=== PATIENT | female | born 1995 | race African-American/Black ===

== ENCOUNTER 2016-06-08 14:23 | Inpatient (IN) | payer MEDICAID ==
[~2016-06-08 14:23] MED LIST: CHOL200018 PO; LURA60TA PO
[2016-06-08] MEDS ORDERED: LORazepam 2 MG/ML VIAL IM ONE (15:15)
[2016-06-08] MEDS ORDERED: DiphenhydrAMINE HCL 50 MG/ML VIAL IM ONE (15:15)
[2016-06-08] MEDS ORDERED: HALOPERIDOL LACTATE 5 MG/ML VIAL IM ONE (15:15)
[2016-06-08 16:01] VITALS: BP 132/73
[2016-06-08] MEDS ORDERED: LORazepam 2 MG TABLET PO PRN (16:30)
[2016-06-08] MEDS ORDERED: ZOLPIDEM TARTRATE 10 MG TABLET PO PRN (16:30)
[2016-06-08] MEDS ORDERED: HALOPERIDOL 5 MG TABLET PO PRN (16:30)
[2016-06-08] MEDS ORDERED: INFLUENZA VIRUS VACCINE QVS 2016-17 (3YR+)/PF 60 MCG/0.5 ML SYRINGE IM ONE (17:30)
[2016-06-09 07:05] VITALS: BP 125/70
[2016-06-09] MEDS ORDERED: ACETAMINOPHEN 325 MG TABLET PO PRN (09:00)
[2016-06-09] MEDS ORDERED: IBUPROFEN 600 MG TABLET PO PRN (09:00)
[2016-06-09] MEDS ORDERED: MAGNESIUM HYDROXIDE SUSPENSION 30 ML UDCUP PO PRN (09:00)
[2016-06-09] MEDS ORDERED: BENZOCAINE/MENTHOL LOZENGE MM PRN (09:00)
[2016-06-09] MEDS ORDERED: CloNIDine HCL 0.1 MG TABLET PO PRN (09:00)
[2016-06-09] MEDS ORDERED: ONDANSETRON HCL 4 MG TABLET PO PRN (09:00)
[2016-06-09] MEDS ORDERED: LOPERAMIDE HCL 2 MG CAPSULE PO PRN (09:00)
[2016-06-09] MEDS ORDERED: ALBUTEROL SULFATE HFA 90 MCG/PUFF 8 GM INHALER IH PRN (09:00)
[2016-06-09] MEDS: CHOLECALCIFEROL (VIT D3) 1,000 UNITS TABLET PO SCH (09:00)
[2016-06-09] MEDS ORDERED: PETROLATUM,WHITE 71 GM JELLY TP PRN (09:00)
[2016-06-09] MEDS ORDERED: BACITRACIN 28.4 GM OINTMENT TP PRN (09:00)
[2016-06-09] MEDS ORDERED: MAG HYDROX/AL HYDROX/SIMETH ES 30 ML SUSPENSION UDCUP PO PRN (09:00)
[2016-06-09 09:30] VITALS: BP 128/79
[2016-06-09] MEDS ORDERED: HALOPERIDOL LACTATE 5 MG/ML VIAL ONE (11:56)
[2016-06-09] MEDS ORDERED: DiphenhydrAMINE HCL 50 MG/ML VIAL ONE (11:56)
[2016-06-09] MEDS ORDERED: LORazepam 2 MG/ML VIAL ONE (11:56)
[2016-06-09 16:06] VITALS: BP 102/64
[2016-06-09] MEDS: RisperiDONE 2 MG TABLET PO SCH (16:24)
[2016-06-10 00:05] VITALS: BP 100/60
[2016-06-10 08:34] VITALS: BP 102/55
[2016-06-10] MEDS: CHOLECALCIFEROL (VIT D3) 1,000 UNITS TABLET PO SCH (09:13)
[2016-06-10] MEDS: RisperiDONE 2 MG TABLET PO SCH (09:13)
[2016-06-10] MEDS ORDERED: RISP2 PO (13:59)
== END 2016-06-10 14:50 | disposition home or self-care (01) | DRG 750 ==
LOC: B3A 17:10
DX: F25.0 Schizoaffective disorder, bipolar type (principal); E55.9 Vitamin D deficiency, unspecified; F41.9 Anxiety disorder, unspecified; F17.200 Nicotine dependence, unspecified, uncomplicated; F15.10 Other stimulant abuse, uncomplicated; F12.90 Cannabis use, unspecified, uncomplicated; Z28.21 Immunization not carried out because of patient refusal; Z71.6 Tobacco abuse counseling; Z71.51 Drug abuse counseling and surveillance of drug abuser
CPT/HCPCS: 90471; J1200; J1630; J2060

== ENCOUNTER 2016-07-27 12:27 | Inpatient (IN) | payer MEDICAID ==
[~2016-07-27] VITALS: Ht 154.9 cm; Wt 42.2 kg
[~2016-07-27 12:27] MED LIST changes: -LURA60TA PO; +RISP2 PO
[2016-07-27 12:39] VITALS: BP 126/75
[2016-07-27] MEDS ORDERED: TUBERCULIN, PURIFIED PROTEIN DERIVATIVE 5 TU/0.1 ML SYG ID ONE (13:30)
[2016-07-27] MEDS ORDERED: HydrOXYzine PAMOATE 50 MG CAPSULE PO PRN (13:30)
[2016-07-27] MEDS ORDERED: OLANZapine 5 MG RAPDIS TABLET PO PRN (13:30)
[2016-07-27] MEDS ORDERED: MAG HYDROX/AL HYDROX/SIMETH ES 30 ML SUSPENSION UDCUP PO PRN (13:30)
[2016-07-27] MEDS ORDERED: ZOLPIDEM TARTRATE 10 MG TABLET PO PRN (13:30)
[2016-07-27] MEDS ORDERED: ACETAMINOPHEN 325 MG TABLET PO PRN (13:30)
[2016-07-27] MEDS ORDERED: GuaiFENesin/D-METHORPHAN [SUGAR-FREE] 200-20MG/10 ML SYRUP UDCUP PO PRN (13:30)
[2016-07-27] MEDS ORDERED: MAGNESIUM HYDROXIDE SUSPENSION 30 ML UDCUP PO PRN (13:30)
[2016-07-27] MEDS ORDERED: LOPERAMIDE HCL 2 MG CAPSULE PO PRN (13:30)
[2016-07-27] MEDS ORDERED: LORazepam 2 MG TABLET PO PRN (13:30)
[2016-07-27] MEDS ORDERED: PROMETHAZINE HCL 25 MG TABLET PO PRN (13:30)
[2016-07-27] MEDS ORDERED: RisperiDONE 1 MG TABLET PO PRN (14:45)
[2016-07-27] MEDS ORDERED: RisperiDONE MICROSPHERES 50 MG/2 ML SYRINGE IM ONE (14:45)
[2016-07-27] MEDS ORDERED: VITAD1000 PO (14:55)
[2016-07-27 16:11] VITALS: BP 140/90
[2016-07-27] MEDS ORDERED: LORazepam 2 MG/ML VIAL IM ONE (17:15)
[2016-07-27] MEDS ORDERED: DiphenhydrAMINE HCL 50 MG/ML VIAL IM ONE (17:15)
[2016-07-27] MEDS ORDERED: HALOPERIDOL LACTATE 5 MG/ML VIAL IM ONE (17:15)
[2016-07-27] MEDS: THIAMINE HCL 100 MG TABLET PO SCH (17:25)
[2016-07-27] MEDS ORDERED: INFLUENZA VIRUS VACCINE QVS 2016-17 (3YR+)/PF 60 MCG/0.5 ML SYRINGE IM ONE (17:45)
[2016-07-27] MEDS ORDERED: OLANZapine 5 MG RAPDIS TABLET PO SCH (21:00)
[2016-07-27] MEDS: RisperiDONE 3 MG TABLET PO SCH (21:00)
[2016-07-27 22:55] VITALS: BP 108/63
[2016-07-28] MEDS: THIAMINE HCL 100 MG TABLET PO SCH ×2 (09:00→16:47)
[2016-07-28] MEDS: MULTIVITAMINS WITH MINERALS, THERAPEUTIC TABLET PO SCH (09:00)
[2016-07-28] MEDS: CHOLECALCIFEROL (VIT D3) 1,000 UNITS TABLET PO SCH (09:00)
[2016-07-28] MEDS: FOLIC ACID 1 MG TABLET PO SCH (09:00)
[2016-07-28] MEDS ORDERED: LORazepam 2 MG/ML VIAL ONE (09:36)
[2016-07-28] MEDS ORDERED: HALOPERIDOL LACTATE 5 MG/ML VIAL ONE (09:37)
[2016-07-28] MEDS ORDERED: DiphenhydrAMINE HCL 50 MG/ML VIAL ONE (09:37)
[2016-07-28] MEDS ORDERED: LORazepam 2 MG/ML VIAL IM ONE (09:45)
[2016-07-28] MEDS ORDERED: DiphenhydrAMINE HCL 50 MG/ML VIAL IM ONE (09:45)
[2016-07-28] MEDS ORDERED: HALOPERIDOL LACTATE 5 MG/ML VIAL IM ONE (09:45)
[2016-07-28 16:25] VITALS: BP 119/56
[2016-07-28] MEDS: RisperiDONE 3 MG TABLET PO SCH (21:00)
[2016-07-29] MEDS: THIAMINE HCL 100 MG TABLET PO SCH ×2 (09:00→17:00)
[2016-07-29] MEDS: FOLIC ACID 1 MG TABLET PO SCH (09:00)
[2016-07-29] MEDS: CHOLECALCIFEROL (VIT D3) 1,000 UNITS TABLET PO SCH (09:00)
[2016-07-29] MEDS: MULTIVITAMINS WITH MINERALS, THERAPEUTIC TABLET PO SCH (09:00)
[2016-07-29 09:08] LABS: ADD UA MICROSCOPIC NO; APPEARANCE,URINE CLEAR (CLEAR); GLUCOSE, URINE (UA) NEGATIVE (NEGATIVE); KETONES,URINE NEGATIVE (NEGATIVE); LEUKOCYTE ESTERASE ,URINE NEGATIVE (NEGATIVE); OCCULT BLOOD,URINE NEGATIVE (NEGATIVE); PROTEIN,URINE POS 1+ (NEGATIVE)
[2016-07-29] MEDS: RisperiDONE 3 MG TABLET PO SCH (21:00)
[2016-07-30 08:12] LABS: EOSINOPHILS % (AUTO) 0.9 % (1.0-6.0); HEMATOCRIT 41.9 % (36-46); HEMOGLOBIN 13.3 g/dL (12.0-16.0); LYMPHOCYTES # (AUTO) 1.4 K/uL (1.0-4.8); LYMPHOCYTES % (AUTO) 42.5 % (22.0-44.0); MEAN CORPUSCULAR HEMOGLOBIN 20.8 pg (26.0-34.0); MEAN CORPUSCULAR HGB CONC 31.6 G/dL (31.0-37.0); MEAN CORPUSCULAR VOLUME 66 fL (80-100); MONOCYTES # (AUTO) 0.3 K/uL (0.1-1.0); MONOCYTES % (AUTO) 7.7 % (2.0-9.0); NEUTROPHILS # (AUTO) 1.6 K/uL (1.8-7.7); NEUTROPHILS % (AUTO) 47.9 % (40.0-70.0); PLATELET COUNT (AUTO) 206 K/uL (150-450); RED BLOOD CELL COUNT(AUTO) 6.37 MIL/uL (4.00-5.20); RED CELL DISTRIBUTION WIDTH 14.8 % (11.5-14.5); WHITE BLOOD COUNT (AUTO) 3.3 K/uL (4.5-11.0)
[2016-07-30 08:16] VITALS: BP 103/60
[2016-07-30 08:32] LABS: HEMOGLOBIN A1C 5.6 % (4.5-6.2)
[2016-07-30 08:40] LABS: RBC MORPHOLOGY COMMENT ABNORMAL RBC MORPH
[2016-07-30 08:56] LABS: ALANINE AMINOTRANSFERASE 18 U/L (12-78); ALBUMIN 3.9 g/dL (3.4-5.0); ANION GAP 9 mmol/L (8-16); ASPARTATE AMINOTRANSFERASE 33 U/L (15-37); BILIRUBIN,TOTAL 0.5 mg/dL (0.1-1.0); CALCIUM, TOTAL 8.6 mg/dL (8.8-10.5); CARBON DIOXIDE 25 mmol/L (22-29); CHLORIDE 104 mmol/L (98-107); CHOL/HDL RATIO 2.7 (3.9-5.7); GLOMERULAR FILTR. RATE CALC > 60 mL/min (>60); POTASSIUM 4.2 mmol/L (3.5-5.1); SODIUM SERUM 138 mmol/L (136-145); THYROID STIMULATING HORMONE 0.24 uIU/mL (0.36-3.74); TOTAL PROTEIN, SERUM 6.8 g/dL (6.4-8.2); UREA NITROGEN, BLOOD 9 mg/dL (7-18)
[2016-07-30] MEDS: CHOLECALCIFEROL (VIT D3) 1,000 UNITS TABLET PO SCH (08:59)
[2016-07-30] MEDS: MULTIVITAMINS WITH MINERALS, THERAPEUTIC TABLET PO SCH (08:59)
[2016-07-30] MEDS: THIAMINE HCL 100 MG TABLET PO SCH ×2 (08:59→16:23)
[2016-07-30] MEDS: FOLIC ACID 1 MG TABLET PO SCH (09:00)
[2016-07-30] MEDS: NALTREXONE HCL 50 MG TABLET PO SCH (09:00)
[2016-07-30] MEDS ORDERED: RisperiDONE MICROSPHERES 50 MG/2 ML SYRINGE IM SCH (13:00)
[2016-07-30] MEDS ORDERED: RISP3 PO (14:39)
[2016-07-30] MEDS ORDERED: NALT50 PO (14:39)
[2016-07-30] MEDS ORDERED: RISPC50 IM (14:39)
[2016-07-30 16:33] VITALS: BP 112/73
[2016-07-30 17:44] LABS: RAPID PLASMA REAGIN NONREACTIVE (NONREACTIVE)
[2016-07-30] MEDS ORDERED: RisperiDONE 3 MG TABLET PO SCH (21:00)
[2016-07-31] MEDS: CHOLECALCIFEROL (VIT D3) 1,000 UNITS TABLET PO SCH (07:59)
[2016-07-31] MEDS: NALTREXONE HCL 50 MG TABLET PO SCH (07:59)
[2016-07-31] MEDS: FOLIC ACID 1 MG TABLET PO SCH (07:59)
[2016-07-31] MEDS: THIAMINE HCL 100 MG TABLET PO SCH (07:59)
[2016-07-31] MEDS: MULTIVITAMINS WITH MINERALS, THERAPEUTIC TABLET PO SCH (07:59)
[2016-07-31 08:48] VITALS: BP 92/70
[2016-07-31 11:17] LABS: HEPATITIS Bs ANTIGEN SCREEN P Negative (Negative); HEPATITIS C AB SCREEN <0.1 s/co ratio (0.0-0.9)
[2016-08-10] MEDS ORDERED: RisperiDONE MICROSPHERES 50 MG/2 ML SYRINGE IM SCH (09:00)
== END 2016-07-31 11:30 | disposition home or self-care (01) | DRG 750 ==
LOC: B3A 14:53 → EDSTATUS 15:02
PROVIDERS: ADMIT Psychiatry & Neurology Psychiatry; ATTEND Psychiatry & Neurology Psychiatry
DX: F20.0 Paranoid schizophrenia (principal); E55.9 Vitamin D deficiency, unspecified; F12.90 Cannabis use, unspecified, uncomplicated; F15.90 Other stimulant use, unspecified, uncomplicated; F17.200 Nicotine dependence, unspecified, uncomplicated; Z79.899 Other long term (current) drug therapy; Z59.0 Homelessness; Z91.14 Patient's other noncompliance with medication regimen; Z28.21 Immunization not carried out because of patient refusal
CPT/HCPCS: 80074; 83036; 84439; 84443; 86592; 90471; J1200; J1630; J2060; J2794

== ENCOUNTER 2016-08-02 14:35 | Inpatient (IN) | payer MEDICAID ==
[~2016-08-02 14:35] MED LIST changes: -CHOL200018 PO; +NALT50 PO; -RISP2 PO; +RISP3 PO; +RISPC50 IM; +VITAD1000 PO
[2016-08-02] MEDS ORDERED: LORazepam 2 MG/ML VIAL IM ONE (14:45)
[2016-08-02] MEDS ORDERED: HALOPERIDOL 5 MG TABLET PO PRN (14:45)
[2016-08-02] MEDS ORDERED: HALOPERIDOL LACTATE 5 MG/ML VIAL IM ONE (14:45)
[2016-08-02] MEDS ORDERED: ZOLPIDEM TARTRATE 10 MG TABLET PO PRN (14:45)
[2016-08-02] MEDS ORDERED: DiphenhydrAMINE HCL 50 MG/ML VIAL IM ONE (14:45)
[2016-08-02] MEDS ORDERED: ACETAMINOPHEN 325 MG TABLET PO PRN (14:45)
[2016-08-02] MEDS ORDERED: MAG HYDROX/AL HYDROX/SIMETH ES 30 ML SUSPENSION UDCUP PO PRN (14:45)
[2016-08-02] MEDS ORDERED: LOPERAMIDE HCL 2 MG CAPSULE PO PRN (14:45)
[2016-08-02] MEDS ORDERED: PROMETHAZINE HCL 25 MG TABLET PO PRN (14:45)
[2016-08-02] MEDS ORDERED: MAGNESIUM HYDROXIDE SUSPENSION 30 ML UDCUP PO PRN (14:45)
[2016-08-02 15:18] VITALS: BP 119/77
[2016-08-02 16:12] VITALS: BP 119/77
[2016-08-02] MEDS ORDERED: RisperiDONE 3 MG TABLET PO SCH (21:00)
[2016-08-03] MEDS ORDERED: LORazepam 2 MG/ML VIAL ONE (11:24)
[2016-08-03] MEDS ORDERED: DiphenhydrAMINE HCL 50 MG/ML VIAL ONE (11:24)
[2016-08-03] MEDS ORDERED: HALOPERIDOL LACTATE 5 MG/ML VIAL ONE (11:24)
[2016-08-03] MEDS ORDERED: HydrOXYzine PAMOATE 50 MG CAPSULE PO PRN (14:00)
[2016-08-03] MEDS ORDERED: GuaiFENesin/D-METHORPHAN [SUGAR-FREE] 200-20MG/10 ML SYRUP UDCUP PO PRN (14:00)
[2016-08-03] MEDS: THIAMINE HCL 100 MG TABLET PO SCH (16:50)
[2016-08-03] MEDS: LORazepam 2 MG TABLET PO PRN (17:09)
[2016-08-03] MEDS: DIVALPROEX SODIUM 500 MG ER TABLET PO SCH (20:43)
[2016-08-03] MEDS ORDERED: RisperiDONE 3 MG TABLET PO SCH (21:00)
[2016-08-03] MEDS ORDERED: OLANZapine 5 MG RAPDIS TABLET PO SCH (21:00)
[2016-08-04] MEDS: FOLIC ACID 1 MG TABLET PO SCH (08:38)
[2016-08-04] MEDS: THIAMINE HCL 100 MG TABLET PO SCH ×2 (08:38→16:59)
[2016-08-04] MEDS: MULTIVITAMINS WITH MINERALS, THERAPEUTIC TABLET PO SCH (08:38)
[2016-08-04] MEDS: NALTREXONE HCL 50 MG TABLET PO SCH (08:38)
[2016-08-04] MEDS: DIVALPROEX SODIUM 500 MG ER TABLET PO SCH (20:52)
[2016-08-04] MEDS: OLANZapine 10 MG RAPDIS TABLET PO SCH (20:52)
[2016-08-05 08:23] LABS: BASOPHILS % (AUTO) 0.8 % (0.0-2.0); HEMATOCRIT 38.3 % (36-46); HEMOGLOBIN 11.9 g/dL (12.0-16.0); LYMPHOCYTES # (AUTO) 1.3 K/uL (1.0-4.8); LYMPHOCYTES % (AUTO) 28.7 % (22.0-44.0); MEAN CORPUSCULAR HEMOGLOBIN 20.7 pg (26.0-34.0); MEAN CORPUSCULAR VOLUME 67 fL (80-100); MONOCYTES # (AUTO) 0.2 K/uL (0.1-1.0); MONOCYTES % (AUTO) 5.3 % (2.0-9.0); NEUTROPHILS % (AUTO) 64.2 % (40.0-70.0); PLATELET COUNT (AUTO) 203 K/uL (150-450); RED BLOOD CELL COUNT(AUTO) 5.74 MIL/uL (4.00-5.20); RED CELL DISTRIBUTION WIDTH 14.6 % (11.5-14.5); WHITE BLOOD COUNT (AUTO) 4.7 K/uL (4.5-11.0)
[2016-08-05 08:57] LABS: ALANINE AMINOTRANSFERASE 14 U/L (12-78); ALBUMIN 3.3 g/dL (3.4-5.0); ANION GAP 6 mmol/L (8-16); ASPARTATE AMINOTRANSFERASE 13 U/L (15-37); BILIRUBIN,TOTAL 0.3 mg/dL (0.1-1.0); CALCIUM, TOTAL 8.2 mg/dL (8.8-10.5); CARBON DIOXIDE 28 mmol/L (22-29); CHLORIDE 106 mmol/L (98-107); CHOL/HDL RATIO 2.1 (3.9-5.7); CREATININE 0.65 mg/dL (0.60-1.30); GLOMERULAR FILTR. RATE CALC > 60 mL/min (>60); POTASSIUM 4.3 mmol/L (3.5-5.1); SODIUM SERUM 140 mmol/L (136-145); THYROID STIMULATING HORMONE 0.11 uIU/mL (0.36-3.74); TOTAL PROTEIN, SERUM 6.2 g/dL (6.4-8.2); UREA NITROGEN, BLOOD 16 mg/dL (7-18); VALPROIC ACID 34 mcg/mL (50-100)
[2016-08-05] MEDS: NALTREXONE HCL 50 MG TABLET PO SCH (09:04)
[2016-08-05] MEDS: MULTIVITAMINS WITH MINERALS, THERAPEUTIC TABLET PO SCH (09:04)
[2016-08-05] MEDS: FOLIC ACID 1 MG TABLET PO SCH (09:04)
[2016-08-05] MEDS: THIAMINE HCL 100 MG TABLET PO SCH ×2 (09:04→16:32)
[2016-08-05 09:27] LABS: RBC MORPHOLOGY COMMENT ABNORMAL RBC MORPH
[2016-08-05] MEDS ORDERED: DiphenhydrAMINE HCL 50 MG/ML VIAL ONE (11:00)
[2016-08-05] MEDS ORDERED: LORazepam 2 MG/ML VIAL ONE (11:00)
[2016-08-05] MEDS ORDERED: HALOPERIDOL LACTATE 5 MG/ML VIAL ONE (11:00)
[2016-08-05] MEDS ORDERED: DiphenhydrAMINE HCL 50 MG/ML VIAL IM ONE (11:15)
[2016-08-05] MEDS ORDERED: LORazepam 2 MG/ML VIAL IM ONE (11:15)
[2016-08-05] MEDS ORDERED: HALOPERIDOL LACTATE 5 MG/ML VIAL IM ONE (11:15)
[2016-08-05 13:01] VITALS: BP 96/68
[2016-08-05] MEDS: DIVALPROEX SODIUM 500 MG ER TABLET PO SCH (20:35)
[2016-08-05] MEDS: OLANZapine 10 MG RAPDIS TABLET PO SCH (20:35)
[2016-08-06] MEDS: THIAMINE HCL 100 MG TABLET PO SCH ×2 (08:39→16:04)
[2016-08-06] MEDS: NALTREXONE HCL 50 MG TABLET PO SCH (08:39)
[2016-08-06] MEDS: FOLIC ACID 1 MG TABLET PO SCH (08:39)
[2016-08-06] MEDS: MULTIVITAMINS WITH MINERALS, THERAPEUTIC TABLET PO SCH (08:39)
[2016-08-06 16:39] VITALS: BP 118/72
[2016-08-06] MEDS: OLANZapine 10 MG RAPDIS TABLET PO SCH (20:26)
[2016-08-06] MEDS: DIVALPROEX SODIUM 500 MG ER TABLET PO SCH (20:26)
[2016-08-07] MEDS: MULTIVITAMINS WITH MINERALS, THERAPEUTIC TABLET PO SCH (08:43)
[2016-08-07] MEDS: NALTREXONE HCL 50 MG TABLET PO SCH (08:43)
[2016-08-07] MEDS: FOLIC ACID 1 MG TABLET PO SCH (08:44)
[2016-08-07] MEDS: THIAMINE HCL 100 MG TABLET PO SCH ×2 (08:44→16:09)
[2016-08-07] MEDS: OLANZapine 5 MG RAPDIS TABLET PO PRN (13:16)
[2016-08-07] MEDS: LORazepam 2 MG TABLET PO PRN (13:16)
[2016-08-07 16:00] VITALS: BP 114/68
[2016-08-07] MEDS: DIVALPROEX SODIUM 500 MG ER TABLET PO SCH (21:00)
[2016-08-07] MEDS: OLANZapine 10 MG RAPDIS TABLET PO SCH (21:00)
[2016-08-08] MEDS: MULTIVITAMINS WITH MINERALS, THERAPEUTIC TABLET PO SCH (08:48)
[2016-08-08] MEDS: LORazepam 2 MG TABLET PO PRN ×2 (08:48→16:50)
[2016-08-08] MEDS: NALTREXONE HCL 50 MG TABLET PO SCH (08:48)
[2016-08-08] MEDS: THIAMINE HCL 100 MG TABLET PO SCH ×2 (08:48→16:50)
[2016-08-08] MEDS: FOLIC ACID 1 MG TABLET PO SCH (08:48)
[2016-08-08 08:50] VITALS: BP 103/61
[2016-08-08] MEDS: IBUPROFEN 600 MG TABLET PO PRN ×2 (12:00→18:07)
[2016-08-08 16:17] VITALS: BP 97/50
[2016-08-08] MEDS: OLANZapine 5 MG RAPDIS TABLET PO PRN (16:51)
[2016-08-08] MEDS: OLANZapine 10 MG RAPDIS TABLET PO SCH (20:34)
[2016-08-08] MEDS: DIVALPROEX SODIUM 500 MG ER TABLET PO SCH (20:34)
[2016-08-09 07:06] VITALS: BP 98/60
[2016-08-09] MEDS: NALTREXONE HCL 50 MG TABLET PO SCH (09:56)
[2016-08-09] MEDS: LORazepam 2 MG TABLET PO PRN ×2 (09:56→16:40)
[2016-08-09] MEDS: OLANZapine 5 MG RAPDIS TABLET PO PRN ×2 (09:56→16:40)
[2016-08-09] MEDS: FOLIC ACID 1 MG TABLET PO SCH (09:56)
[2016-08-09] MEDS: MULTIVITAMINS WITH MINERALS, THERAPEUTIC TABLET PO SCH (09:56)
[2016-08-09] MEDS: THIAMINE HCL 100 MG TABLET PO SCH ×2 (09:56→16:40)
[2016-08-09 10:08] VITALS: BP 104/72
[2016-08-09 16:20] VITALS: BP 105/67
[2016-08-09] MEDS: IBUPROFEN 600 MG TABLET PO PRN (16:39)
[2016-08-09] MEDS: DIVALPROEX SODIUM 500 MG ER TABLET PO SCH (21:00)
[2016-08-09] MEDS: OLANZapine 10 MG RAPDIS TABLET PO SCH (21:00)
[2016-08-10 07:01] VITALS: BP 108/65
[2016-08-10 08:19] VITALS: BP 116/66
[2016-08-10] MEDS: MULTIVITAMINS WITH MINERALS, THERAPEUTIC TABLET PO SCH (08:33)
[2016-08-10] MEDS: THIAMINE HCL 100 MG TABLET PO SCH ×2 (08:33→16:59)
[2016-08-10] MEDS: IBUPROFEN 600 MG TABLET PO PRN (08:33)
[2016-08-10] MEDS: FOLIC ACID 1 MG TABLET PO SCH (08:33)
[2016-08-10] MEDS: OLANZapine 5 MG RAPDIS TABLET PO PRN (08:33)
[2016-08-10] MEDS: NALTREXONE HCL 50 MG TABLET PO SCH (08:33)
[2016-08-10] MEDS: LORazepam 2 MG TABLET PO PRN (08:33)
[2016-08-10] MEDS ORDERED: OLAN10TA22 PO (15:13)
[2016-08-10] MEDS ORDERED: DIVA500T52 PO (15:13)
[2016-08-10] MEDS ORDERED: NALT50 PO (15:13)
[2016-08-10] MEDS: OLANZapine 10 MG RAPDIS TABLET PO SCH (20:38)
[2016-08-10] MEDS: DIVALPROEX SODIUM 500 MG ER TABLET PO SCH (20:44)
[2016-08-11 06:48] VITALS: BP 106/65
[2016-08-11 08:08] VITALS: BP 109/61
[2016-08-11] MEDS: FOLIC ACID 1 MG TABLET PO SCH (08:19)
[2016-08-11] MEDS: MULTIVITAMINS WITH MINERALS, THERAPEUTIC TABLET PO SCH (08:19)
[2016-08-11] MEDS: NALTREXONE HCL 50 MG TABLET PO SCH (08:19)
[2016-08-11] MEDS: THIAMINE HCL 100 MG TABLET PO SCH (08:19)
[2016-08-11] MEDS: LORazepam 2 MG TABLET PO PRN (10:01)
[2016-08-13] MEDS ORDERED: RisperiDONE MICROSPHERES 50 MG/2 ML SYRINGE IM SCH (09:00)
== END 2016-08-11 10:55 | disposition home or self-care (01) | DRG 750 ==
LOC: B3A 15:01
PROVIDERS: ATTEND Psychiatry & Neurology Psychiatry
DX: F20.0 Paranoid schizophrenia (principal); E55.9 Vitamin D deficiency, unspecified; F25.0 Schizoaffective disorder, bipolar type; F12.90 Cannabis use, unspecified, uncomplicated; F19.10 Other psychoactive substance abuse, uncomplicated; F17.210 Nicotine dependence, cigarettes, uncomplicated; Z59.9 Problem related to housing and economic circumstances, unspecified; Z59.0 Homelessness; Z71.6 Tobacco abuse counseling; Z71.51 Drug abuse counseling and surveillance of drug abuser; Z91.19 Patient's noncompliance with other medical treatment and regimen; Z81.8 Family history of other mental and behavioral disorders
CPT/HCPCS: 84439; 84443; 87081; J1200; J1630; J2060

== ENCOUNTER 2017-09-07 14:17 | Inpatient (IN) | payer SELFPAY ==
[~2017-09-07] VITALS: Ht 154.9 cm; Wt 42.2 kg
[~2017-09-07 14:17] MED LIST changes: +DIVA500T52 PO; -NALT50 PO; +NALT50TA6 PO; +OLAN10TA22 PO; -RISP3 PO; -RISPC50 IM; -VITAD1000 PO
[2017-09-07 17:04] LABS: BASOPHILS % (AUTO) 1.7 % (0.0-2.0); EOSINOPHILS % (AUTO) 0.4 % (1.0-6.0); HEMATOCRIT 36.4 % (36-46); HEMOGLOBIN 12.1 g/dL (12.0-16.0); LYMPHOCYTES # (AUTO) 2.1 K/uL (1.0-4.8); LYMPHOCYTES % (AUTO) 53.5 % (22.0-44.0); MEAN CORPUSCULAR HGB CONC 33.4 G/dL (31.0-37.0); MEAN CORPUSCULAR VOLUME 63 fL (80-100); MONOCYTES # (AUTO) 0.4 K/uL (0.1-1.0); MONOCYTES % (AUTO) 9.7 % (2.0-9.0); NEUTROPHILS # (AUTO) 1.3 K/uL (1.8-7.7); NEUTROPHILS % (AUTO) 34.7 % (40.0-70.0); PLATELET COUNT (AUTO) 215 K/uL (150-450); RED BLOOD CELL COUNT(AUTO) 5.78 MIL/uL (4.00-5.20); RED CELL DISTRIBUTION WIDTH 14.3 % (11.5-14.5)
[2017-09-07 17:13] LABS: ANION GAP 7 mmol/L (8-16); CALCIUM, TOTAL 8.6 mg/dL (8.8-10.5); CARBON DIOXIDE 29 mmol/L (22-29); CHLORIDE 103 mmol/L (98-107); CREATININE 0.75 mg/dL (0.60-1.30); GLOMERULAR FILTR. RATE CALC > 60 mL/min (>60); GLUCOSE,RANDOM 117 mg/dL (70-110); POTASSIUM 3.4 mmol/L (3.5-5.1); SODIUM SERUM 139 mmol/L (136-145); UREA NITROGEN, BLOOD 12 mg/dL (7-18)
[2017-09-07] MEDS ORDERED: HALOPERIDOL 5 MG TABLET PO ONE (17:15)
[2017-09-07] MEDS: ZOLPIDEM TARTRATE 10 MG TABLET PO PRN (17:15)
[2017-09-07] MEDS ORDERED: LORazepam 2 MG TABLET PO ONE (17:15)
[2017-09-07 17:18] LABS: ALANINE AMINOTRANSFERASE 23 U/L (12-78); ALKALINE PHOSPHATASE 79 U/L (46-116); ASPARTATE AMINOTRANSFERASE 18 U/L (15-37); BILIRUBIN,TOTAL 0.7 mg/dL (0.1-1.0); TOTAL PROTEIN, SERUM 6.9 g/dL (6.4-8.2)
[2017-09-07 17:34] LABS: PLATELET MORPHOLOGY COMMENT GIANT PLTS PRESENT
[2017-09-07 21:04] VITALS: BP 128/68
[2017-09-07] MEDS ORDERED: POTASSIUM CHLORIDE 20 MEQ ER TABLET PO ONE (21:15)
[2017-09-08 05:58] VITALS: BP 103/64
[2017-09-08] MEDS ORDERED: BACITRACIN 28.4 GM OINTMENT TP PRN (08:30)
[2017-09-08] MEDS ORDERED: ALBUTEROL SULFATE HFA 90 MCG/PUFF 8 GM INHALER IH PRN (08:30)
[2017-09-08] MEDS ORDERED: MAG HYDROX/AL HYDROX/SIMETH ES 30 ML SUSPENSION UDCUP PO PRN (08:30)
[2017-09-08] MEDS ORDERED: CloNIDine HCL 0.1 MG TABLET PO PRN (08:30)
[2017-09-08] MEDS ORDERED: BENZOCAINE/MENTHOL LOZENGE MM PRN (08:30)
[2017-09-08] MEDS ORDERED: ACETAMINOPHEN 325 MG TABLET PO PRN ×2 (08:30→16:45)
[2017-09-08] MEDS ORDERED: MAGNESIUM HYDROXIDE SUSPENSION 30 ML UDCUP PO PRN (08:30)
[2017-09-08] MEDS ORDERED: ONDANSETRON HCL 4 MG TABLET PO PRN (08:30)
[2017-09-08] MEDS ORDERED: LOPERAMIDE HCL 2 MG CAPSULE PO PRN (08:30)
[2017-09-08] MEDS ORDERED: PETROLATUM,WHITE 71 GM JELLY TP PRN (08:30)
[2017-09-08] MEDS ORDERED: IBUPROFEN 600 MG TABLET PO PRN (08:30)
[2017-09-08 16:25] VITALS: BP 126/71
[2017-09-08] MEDS ORDERED: IBUPROFEN 400 MG TABLET PO PRN (16:45)
[2017-09-08] MEDS: HALOPERIDOL 5 MG TABLET PO PRN (17:25)
[2017-09-08] MEDS: LORazepam 2 MG TABLET PO PRN (17:25)
[2017-09-08] MEDS: OLANZapine 10 MG TABLET PO SCH (21:06)
[2017-09-08] MEDS: ZOLPIDEM TARTRATE 10 MG TABLET PO PRN (21:06)
[2017-09-09 07:56] LABS: BASOPHILS % (AUTO) 1.3 % (0.0-2.0); EOSINOPHILS % (AUTO) 0.9 % (1.0-6.0); HEMATOCRIT 38.7 % (36-46); HEMOGLOBIN 12.8 g/dL (12.0-16.0); LYMPHOCYTES # (AUTO) 1.6 K/uL (1.0-4.8); LYMPHOCYTES % (AUTO) 64.6 % (22.0-44.0); MEAN CORPUSCULAR HEMOGLOBIN 21.1 pg (26.0-34.0); MEAN CORPUSCULAR HGB CONC 33.1 G/dL (31.0-37.0); MEAN CORPUSCULAR VOLUME 64 fL (80-100); MONOCYTES # (AUTO) 0.2 K/uL (0.1-1.0); MONOCYTES % (AUTO) 8.7 % (2.0-9.0); NEUTROPHILS # (AUTO) 0.6 K/uL (1.8-7.7); NEUTROPHILS % (AUTO) 24.5 % (40.0-70.0); PLATELET COUNT (AUTO) 216 K/uL (150-450); RED BLOOD CELL COUNT(AUTO) 6.08 MIL/uL (4.00-5.20); RED CELL DISTRIBUTION WIDTH 14.1 % (11.5-14.5)
[2017-09-09 08:14] LABS: HEMOGLOBIN A1C 5.4 % (4.5-6.2)
[2017-09-09 08:21] LABS: CHOL/HDL RATIO 2.3 (3.9-5.7); THYROID STIMULATING HORMONE 0.41 uIU/mL (0.36-3.74)
[2017-09-09 08:55] VITALS: BP 102/67
[2017-09-09 16:05] VITALS: BP 103/62
[2017-09-09] MEDS: OLANZapine 10 MG TABLET PO SCH (20:28)
[2017-09-09] MEDS: ZOLPIDEM TARTRATE 10 MG TABLET PO PRN (21:37)
[2017-09-10 06:03] VITALS: BP 122/69
[2017-09-10 16:43] VITALS: BP 100/56
[2017-09-10] MEDS: DIVALPROEX SODIUM 250 MG DR TABLET PO SCH (17:16)
[2017-09-10] MEDS: OLANZapine 10 MG TABLET PO SCH (21:00)
[2017-09-11] MEDS: DIVALPROEX SODIUM 250 MG DR TABLET PO SCH ×2 (08:29→17:17)
[2017-09-11 17:00] VITALS: BP 108/66
[2017-09-11] MEDS: ZOLPIDEM TARTRATE 10 MG TABLET PO PRN (21:28)
[2017-09-11] MEDS: OLANZapine 10 MG TABLET PO SCH (21:28)
[2017-09-12 06:46] VITALS: BP 100/62
[2017-09-12 08:06] VITALS: BP 118/64
[2017-09-12] MEDS: DIVALPROEX SODIUM 250 MG DR TABLET PO SCH ×2 (08:30→17:37)
[2017-09-12 16:07] VITALS: BP 103/67
[2017-09-12] MEDS: LORazepam 2 MG TABLET PO PRN (17:37)
[2017-09-12] MEDS: OLANZapine 10 MG TABLET PO SCH (21:31)
[2017-09-13 06:13] VITALS: BP 114/67
[2017-09-13 08:09] VITALS: BP 96/57
[2017-09-13] MEDS: LORazepam 2 MG TABLET PO PRN ×2 (08:32→19:14)
[2017-09-13] MEDS: HALOPERIDOL 5 MG TABLET PO PRN ×2 (08:32→19:14)
[2017-09-13] MEDS: DIVALPROEX SODIUM 250 MG DR TABLET PO SCH ×2 (08:33→17:03)
[2017-09-13 16:22] VITALS: BP 110/72
[2017-09-13] MEDS: OLANZapine 10 MG TABLET PO SCH (21:18)
[2017-09-14 04:49] VITALS: BP 101/66
[2017-09-14] MEDS: DIVALPROEX SODIUM 250 MG DR TABLET PO SCH (08:05)
[2017-09-14] MEDS: HALOPERIDOL 5 MG TABLET PO PRN ×2 (08:05→12:52)
[2017-09-14] MEDS: LORazepam 2 MG TABLET PO PRN ×2 (08:05→12:52)
[2017-09-14] MEDS ORDERED: DiphenhydrAMINE HCL 50 MG/ML VIAL ONE (08:55)
[2017-09-14] MEDS ORDERED: LORazepam 2 MG/ML VIAL ONE (08:55)
[2017-09-14] MEDS ORDERED: HALOPERIDOL LACTATE 5 MG/ML VIAL ONE (08:56)
[2017-09-14 09:34] VITALS: BP 99/54
[2017-09-14] MEDS ORDERED: DIVA250T25 PO (12:23)
== END 2017-09-14 15:19 | disposition home or self-care (01) | DRG 885 ==
LOC: EMS 14:18 → B3A 17:44
PROVIDERS: ADMIT Psychiatry & Neurology Psychiatry; ATTEND Psychiatry & Neurology Psychiatry
DX: F20.0 Paranoid schizophrenia (principal); Z59.0 Homelessness; D72.819 Decreased white blood cell count, unspecified; E55.9 Vitamin D deficiency, unspecified; R45.87 Impulsiveness; F17.210 Nicotine dependence, cigarettes, uncomplicated; E87.6 Hypokalemia; F31.9 Bipolar disorder, unspecified; F41.9 Anxiety disorder, unspecified; Z79.899 Other long term (current) drug therapy
CPT/HCPCS: 83036; 84132; 84443; 99285; G0480; J1200; J1630; J2060

== ENCOUNTER 2020-12-05 14:06 | Inpatient (IN) | payer MEDICAID ==
[~2020-12-05] VITALS: Ht 154.9 cm; Wt 46.4 kg
[~2020-12-05 14:06] MED LIST changes: +DIVA-111 PO; -DIVA500T52 PO; -NALT50TA6 PO
[2020-12-05] MEDS ORDERED: DiphenhydrAMINE HCL 50 MG/ML VIAL IM ONE (14:30)
[2020-12-05] MEDS ORDERED: HALOPERIDOL LACTATE 5 MG/ML VIAL IM ONE (14:30)
[2020-12-05] MEDS ORDERED: LORazepam 2 MG/ML VIAL IM ONE (14:30)
[2020-12-05 15:03] LABS: COVID AG,FIA SOURCE NASOPHARYNGEAL
[2020-12-05 18:25] VITALS: BP 131/93
[2020-12-05] MEDS ORDERED: ZOLPIDEM TARTRATE 10 MG TABLET PO PRN (21:00)
[2020-12-05] MEDS ORDERED: HALOPERIDOL 5 MG TABLET PO PRN (21:00)
[2020-12-06 03:22] VITALS: BP 118/87
[2020-12-06] MEDS ORDERED: PETROLATUM,WHITE 28 GM JELLY TP PRN (08:15)
[2020-12-06] MEDS ORDERED: GuaiFENesin/D-METHORPHAN [SUGAR-FREE] 200-20MG/10 ML SYRUP UDCUP PO PRN (08:15)
[2020-12-06] MEDS ORDERED: DOCUSATE SODIUM 100 MG CAPSULE PO PRN (08:15)
[2020-12-06] MEDS ORDERED: CloNIDine HCL 0.1 MG TABLET PO PRN (08:15)
[2020-12-06] MEDS ORDERED: ACETAMINOPHEN 325 MG TABLET PO PRN (08:15)
[2020-12-06] MEDS ORDERED: MAGNESIUM HYDROXIDE SUSPENSION 30 ML UDCUP PO PRN (08:15)
[2020-12-06] MEDS ORDERED: ONDANSETRON HCL 4 MG TABLET PO PRN (08:15)
[2020-12-06] MEDS ORDERED: MAG HYDROX/AL HYDROX/SIMETH ES 30 ML SUSPENSION UDCUP PO PRN (08:15)
[2020-12-06] MEDS ORDERED: ALBUTEROL SULFATE HFA 90 MCG/PUFF 8 GM INHALER IH PRN (08:15)
[2020-12-06] MEDS ORDERED: LOPERAMIDE HCL 2 MG CAPSULE PO PRN (08:15)
[2020-12-06] MEDS ORDERED: NICOTINE 14 MG/24 HOUR PATCH TD PRN (08:15)
[2020-12-06] MEDS ORDERED: IBUPROFEN 400 MG TABLET PO PRN (08:15)
[2020-12-06] MEDS: DIVALPROEX SODIUM 500 MG DR TABLET PO SCH ×2 (09:45→17:00)
[2020-12-06] MEDS: OLANZapine 5 MG TABLET PO SCH ×2 (09:45→17:00)
[2020-12-06 16:24] VITALS: BP 132/72
[2020-12-07 01:26] VITALS: BP 127/76
[2020-12-07 08:17] VITALS: BP 110/73
[2020-12-07] MEDS: DIVALPROEX SODIUM 500 MG DR TABLET PO SCH (10:13)
[2020-12-07] MEDS: MULTIVITAMINS WITH MINERALS, THERAPEUTIC TABLET PO SCH (10:13)
[2020-12-07] MEDS: OLANZapine 5 MG TABLET PO SCH (10:14)
[2020-12-07] MEDS ORDERED: VALPROIC ACID 250 MG/5 ML SOLUTION UDCUP PO SCH (11:00)
[2020-12-07] MEDS ORDERED: OLANZapine 5 MG RAPDIS TABLET PO SCH (11:00)
[2020-12-07 16:25] VITALS: BP 111/66
[2020-12-07] MEDS: OLANZapine 5 MG RAPDIS TABLET PO SCH (20:38)
[2020-12-07] MEDS: VALPROIC ACID 250 MG/5 ML SOLUTION UDCUP PO SCH (20:38)
[2020-12-08 06:29] VITALS: BP 104/62
[2020-12-08 09:06] VITALS: BP 105/73
[2020-12-08] MEDS: OLANZapine 5 MG RAPDIS TABLET PO SCH ×2 (09:08→21:00)
[2020-12-08] MEDS: MULTIVITAMINS WITH MINERALS, THERAPEUTIC TABLET PO SCH (09:08)
[2020-12-08] MEDS: VALPROIC ACID 250 MG/5 ML SOLUTION UDCUP PO SCH ×2 (09:09→21:00)
[2020-12-08] MEDS: LORazepam 2 MG TABLET PO PRN (09:13)
[2020-12-08] MEDS ORDERED: HALOPERIDOL LACTATE 5 MG/ML VIAL ONE (09:51)
[2020-12-08] MEDS ORDERED: LORazepam 2 MG/ML VIAL ONE (09:51)
[2020-12-08] MEDS ORDERED: DiphenhydrAMINE HCL 50 MG/ML VIAL ONE (09:51)
[2020-12-08] MEDS ORDERED: DiphenhydrAMINE HCL 50 MG/ML VIAL IM ONE (10:00)
[2020-12-08] MEDS ORDERED: HALOPERIDOL LACTATE 5 MG/ML VIAL IM ONE (10:00)
[2020-12-08] MEDS ORDERED: LORazepam 2 MG/ML VIAL IM ONE (10:00)
[2020-12-08 17:05] VITALS: BP 128/71
[2020-12-09 07:17] VITALS: BP 123/70
[2020-12-09] MEDS: VALPROIC ACID 250 MG/5 ML SOLUTION UDCUP PO SCH ×2 (08:40→21:00)
[2020-12-09] MEDS: LORazepam 2 MG TABLET PO PRN (08:41)
[2020-12-09] MEDS: MULTIVITAMINS WITH MINERALS, THERAPEUTIC TABLET PO SCH (08:41)
[2020-12-09] MEDS: OLANZapine 5 MG RAPDIS TABLET PO SCH ×2 (08:41→21:00)
[2020-12-09 08:51] VITALS: BP 115/72
[2020-12-09 16:25] VITALS: BP 105/62
[2020-12-10 02:34] VITALS: BP 101/74
[2020-12-10 07:40] LABS: BASOPHILS % (AUTO) 0.9 % (0.0-2.0); EOSINOPHILS % (AUTO) 0.4 % (1.0-6.0); HEMATOCRIT 36.5 % (36-46); HEMOGLOBIN 11.7 g/dL (12.0-16.0); LYMPHOCYTES # (AUTO) 1.7 K/uL (1.0-4.8); MEAN CORPUSCULAR HEMOGLOBIN 19.7 pg (26.0-34.0); MEAN CORPUSCULAR HGB CONC 31.9 G/dL (31.0-37.0); MEAN CORPUSCULAR VOLUME 62 fL (80-100); MONOCYTES # (AUTO) 0.3 K/uL (0.1-1.0); MONOCYTES % (AUTO) 7.4 % (2.0-9.0); NEUTROPHILS # (AUTO) 1.9 K/uL (1.8-7.7); NEUTROPHILS % (AUTO) 47.3 % (40.0-70.0); PLATELET COUNT (AUTO) 240 K/uL (150-450); RED BLOOD CELL COUNT(AUTO) 5.91 MIL/uL (4.00-5.20); RED CELL DISTRIBUTION WIDTH 15.8 % (11.5-14.5)
[2020-12-10 08:06] LABS: ALANINE AMINOTRANSFERASE 20 U/L (12-78); ALBUMIN 2.9 g/dL (3.4-5.0); ALKALINE PHOSPHATASE 69 U/L (46-116); ANION GAP 6 mmol/L (8-16); ASPARTATE AMINOTRANSFERASE 17 U/L (15-37); BILIRUBIN,TOTAL 0.3 mg/dL (0.1-1.0); CALCIUM, TOTAL 8.2 mg/dL (8.8-10.5); CARBON DIOXIDE 27 mmol/L (22-29); CHLORIDE 105 mmol/L (98-107); CHOLESTEROL 152 mg/dL (131-200); CREATININE 0.55 mg/dL (0.60-1.30); FREE T4 (FREE THYROXINE) 0.73 ng/dL (0.76-1.46); GLOMERULAR FILTR. RATE CALC > 60 mL/min (>60); GLUCOSE,RANDOM 80 mg/dL (70-110); HCG,QUANTITATIVE < 1 mIU/mL (0-6); HDL CHOLESTEROL 50 mg/dL (40-60); LDL CHOL (CALC.) 97 mg/dL (0-130); PHOSPHORUS 4.5 mg/dL (2.5-4.9); POTASSIUM 4.4 mmol/L (3.5-5.1); SODIUM SERUM 138 mmol/L (136-145); THYROID STIMULATING HORMONE 0.54 uIU/mL (0.36-3.74); TOTAL PROTEIN, SERUM 6.1 g/dL (6.4-8.2); TRIGLYCERIDES 25 mg/dL (15-150); UREA NITROGEN, BLOOD 13 mg/dL (7-18); VALPROIC ACID 26 mcg/mL (50-100)
[2020-12-10] MEDS: OLANZapine 5 MG RAPDIS TABLET PO SCH ×2 (09:00→20:55)
[2020-12-10] MEDS: MULTIVITAMINS WITH MINERALS, THERAPEUTIC TABLET PO SCH (09:00)
[2020-12-10] MEDS: VALPROIC ACID 250 MG/5 ML SOLUTION UDCUP PO SCH ×2 (09:00→20:56)
[2020-12-10 17:29] VITALS: BP 103/67
[2020-12-11 06:37] VITALS: BP 101/66
[2020-12-11 08:42] VITALS: BP 118/79
[2020-12-11] MEDS: OLANZapine 5 MG RAPDIS TABLET PO SCH ×2 (09:10→20:20)
[2020-12-11] MEDS: VALPROIC ACID 250 MG/5 ML SOLUTION UDCUP PO SCH ×2 (09:10→20:20)
[2020-12-11] MEDS: MULTIVITAMINS WITH MINERALS, THERAPEUTIC TABLET PO SCH (09:10)
[2020-12-11] MEDS: LORazepam 2 MG TABLET PO PRN (09:10)
[2020-12-11 16:20] VITALS: BP 102/61
[2020-12-12 00:49] VITALS: BP 100/60
[2020-12-12] MEDS: VALPROIC ACID 250 MG/5 ML SOLUTION UDCUP PO SCH ×2 (08:27→21:02)
[2020-12-12] MEDS: MULTIVITAMINS WITH MINERALS, THERAPEUTIC TABLET PO SCH (08:28)
[2020-12-12] MEDS: OLANZapine 5 MG RAPDIS TABLET PO SCH ×2 (08:28→21:02)
[2020-12-12 08:46] VITALS: BP 106/63
[2020-12-12 09:15] VITALS: BP 116/70
[2020-12-12] MEDS: LORazepam 2 MG TABLET PO PRN ×2 (09:20→16:36)
[2020-12-12 16:37] VITALS: BP 145/64
[2020-12-13 05:48] VITALS: BP 118/68
[2020-12-13 08:27] VITALS: BP 85/46
[2020-12-13 09:15] VITALS: BP 95/61
[2020-12-13] MEDS: MULTIVITAMINS WITH MINERALS, THERAPEUTIC TABLET PO SCH (10:09)
[2020-12-13] MEDS: OLANZapine 5 MG RAPDIS TABLET PO SCH ×2 (10:09→20:49)
[2020-12-13] MEDS: VALPROIC ACID 250 MG/5 ML SOLUTION UDCUP PO SCH ×2 (10:09→20:49)
[2020-12-13 16:12] VITALS: BP 99/68
[2020-12-14 08:22] VITALS: BP 101/75
[2020-12-14] MEDS: OLANZapine 5 MG RAPDIS TABLET PO SCH ×2 (09:00→20:51)
[2020-12-14] MEDS: THIAMINE 100 MG TABLET PO SCH (09:00)
[2020-12-14] MEDS: FOLIC ACID 0.4 MG TABLET PO SCH (09:00)
[2020-12-14] MEDS: MULTIVITAMINS WITH MINERALS, THERAPEUTIC TABLET PO SCH (09:00)
[2020-12-14] MEDS: VALPROIC ACID 250 MG/5 ML SOLUTION UDCUP PO SCH ×2 (09:00→20:52)
[2020-12-14] MEDS ORDERED: LORazepam 2 MG/ML VIAL IM ONE (16:00)
[2020-12-14] MEDS ORDERED: DiphenhydrAMINE HCL 50 MG/ML VIAL IM ONE (16:00)
[2020-12-14] MEDS ORDERED: HALOPERIDOL LACTATE 5 MG/ML VIAL IM ONE (16:00)
[2020-12-14] MEDS ORDERED: HALOPERIDOL LACTATE 5 MG/ML VIAL ONE (16:02)
[2020-12-14 17:22] VITALS: BP 101/64
[2020-12-15 05:32] VITALS: BP 100/72
[2020-12-15] MEDS: FOLIC ACID 0.4 MG TABLET PO SCH (08:16)
[2020-12-15] MEDS: THIAMINE 100 MG TABLET PO SCH (08:16)
[2020-12-15] MEDS: MULTIVITAMINS WITH MINERALS, THERAPEUTIC TABLET PO SCH (08:16)
[2020-12-15] MEDS: VALPROIC ACID 250 MG/5 ML SOLUTION UDCUP PO SCH ×2 (08:16→20:16)
[2020-12-15] MEDS: OLANZapine 5 MG RAPDIS TABLET PO SCH ×2 (08:16→20:16)
[2020-12-15 08:30] VITALS: BP 118/62
[2020-12-15 16:21] VITALS: BP 103/60
[2020-12-15] MEDS: LORazepam 2 MG TABLET PO PRN (17:29)
[2020-12-16 01:04] VITALS: BP 106/63
[2020-12-16 08:20] VITALS: BP 100/57
[2020-12-16] MEDS: FOLIC ACID 0.4 MG TABLET PO SCH (08:55)
[2020-12-16] MEDS: MULTIVITAMINS WITH MINERALS, THERAPEUTIC TABLET PO SCH (08:55)
[2020-12-16] MEDS: LORazepam 2 MG TABLET PO PRN (08:55)
[2020-12-16] MEDS: THIAMINE 100 MG TABLET PO SCH (08:55)
[2020-12-16] MEDS: OLANZapine 5 MG RAPDIS TABLET PO SCH ×2 (08:55→20:18)
[2020-12-16] MEDS: VALPROIC ACID 250 MG/5 ML SOLUTION UDCUP PO SCH ×2 (08:56→20:18)
[2020-12-16 17:24] VITALS: BP 103/68
[2020-12-17 06:28] VITALS: BP 100/62
[2020-12-17 08:17] VITALS: BP 110/72
[2020-12-17] MEDS: VALPROIC ACID 250 MG/5 ML SOLUTION UDCUP PO SCH (08:36)
[2020-12-17] MEDS: FOLIC ACID 0.4 MG TABLET PO SCH (08:36)
[2020-12-17] MEDS: LORazepam 2 MG TABLET PO PRN (08:37)
[2020-12-17] MEDS: THIAMINE 100 MG TABLET PO SCH (08:37)
[2020-12-17] MEDS: MULTIVITAMINS WITH MINERALS, THERAPEUTIC TABLET PO SCH (08:37)
[2020-12-17] MEDS: OLANZapine 5 MG RAPDIS TABLET PO SCH (08:37)
[2020-12-17] MEDS ORDERED: VALP250C48 PO (12:25)
[2020-12-17] MEDS ORDERED: OLAN5TAB94 PO (12:26)
== END 2020-12-17 13:15 | disposition home or self-care (01) | DRG 750 ==
LOC: EMS 14:15 → B3A 16:04
PROVIDERS: ADMIT Psychiatry & Neurology Psychiatry; ATTEND Psychiatry & Neurology Psychiatry
DX: F20.0 Paranoid schizophrenia (principal); E44.0 Moderate protein-calorie malnutrition; K21.9 Gastro-esophageal reflux disease without esophagitis; Z59.0 Homelessness; F17.200 Nicotine dependence, unspecified, uncomplicated; Z20.822 Contact with and (suspected) exposure to COVID-19; E55.9 Vitamin D deficiency, unspecified
CPT/HCPCS: 80053; 80061; 80164; 83735; 84100; 84439; 84443; 84702; 85025; 99285; J1200; J1630; J2060

== ENCOUNTER 2023-08-26 11:22 | Inpatient (IN) | payer MEDICAID, OTHER ==
[~2023-08-26] VITALS: Ht 160 cm; Wt 54.5 kg
[~2023-08-26 11:22] MED LIST changes: -DIVA-111 PO; -OLAN10TA22 PO; +OLAN5TAB94 PO; +VALP250C48 PO
[2023-08-26] MEDS: LORazepam 2 MG/ML VIAL IM ONE (11:54)
[2023-08-26] MEDS: DiphenhydrAMINE HCL 50 MG/ML VIAL IM ONE (11:54)
[2023-08-26] MEDS: HALOPERIDOL LACTATE 5 MG/ML VIAL IM ONE (11:55)
[2023-08-26 12:57] LABS: COVID AG,FIA SOURCE NASAL SWAB
[2023-08-26 13:18] LABS: SARS-COV2 (COVID) ANTIGEN,FIA Negative (Negative)
[2023-08-26 14:45] LABS: BASOPHILS % (AUTO) 1.1 % (0.0-2.0); EOSINOPHILS % (AUTO) 0.3 % (1.0-6.0); HEMATOCRIT 33.8 % (36-46); HEMOGLOBIN 10.8 g/dL (12.0-16.0); LYMPHOCYTES # (AUTO) 1.6 K/uL (1.0-4.8); LYMPHOCYTES % (AUTO) 23.6 % (22.0-44.0); MEAN CORPUSCULAR HEMOGLOBIN 19.6 pg (26.0-34.0); MEAN CORPUSCULAR VOLUME 61 fL (80-100); MONOCYTES # (AUTO) 0.5 K/uL (0.1-1.0); MONOCYTES % (AUTO) 6.9 % (2.0-9.0); NEUTROPHILS # (AUTO) 4.7 K/uL (1.8-7.7); NEUTROPHILS % (AUTO) 68.1 % (40.0-70.0); PLATELET COUNT (AUTO) 251 K/uL (150-450); RED BLOOD CELL COUNT(AUTO) 5.53 MIL/uL (4.00-5.20); RED CELL DISTRIBUTION WIDTH 16.8 % (11.5-14.5); WHITE BLOOD COUNT (AUTO) 6.9 K/uL (4.5-11.0)
[2023-08-26 14:49] LABS: ANION GAP 8 mmol/L (8-16); CALCIUM, TOTAL 8.3 mg/dL (8.8-10.5); CARBON DIOXIDE 27 mmol/L (22-29); CHLORIDE 104 mmol/L (98-107); CREATININE 0.67 mg/dL (0.60-1.30); GLOMERULAR FILTR. RATE CALC > 60 mL/min (>60); GLUCOSE,RANDOM 95 mg/dL (70-110); POTASSIUM 3.7 mmol/L (3.5-5.1); SODIUM SERUM 139 mmol/L (136-145); UREA NITROGEN, BLOOD 10 mg/dL (7-18)
[2023-08-26 14:55] LABS: ALANINE AMINOTRANSFERASE 21 U/L (12-78); ALBUMIN 3.5 g/dL (3.4-5.0); ALKALINE PHOSPHATASE 77 U/L (46-116); ASPARTATE AMINOTRANSFERASE 31 U/L (15-37); BILIRUBIN,TOTAL 0.3 mg/dL (0.1-1.0); TOTAL PROTEIN, SERUM 6.6 g/dL (6.4-8.2)
[2023-08-26 15:16] LABS: ALCOHOL, BLOOD (SERUM) < 3 mg/dL (0-10)
[2023-08-26 16:17] LABS: RBC MORPHOLOGY COMMENT ABNORMAL RBC MORPH
[2023-08-26 17:15] VITALS: BP 132/55; PULSE 85; RESP 18; TEMP 97.7
[2023-08-26 21:00] VITALS: BP 128/60; PULSE 82; RESP 18; TEMP 97.1
[2023-08-27] MEDS ORDERED: CloNIDine HCL 0.1 MG TABLET PO PRN (06:45)
[2023-08-27] MEDS ORDERED: DOCUSATE SODIUM 100 MG CAPSULE PO PRN (06:45)
[2023-08-27] MEDS ORDERED: MAGNESIUM HYDROXIDE SUSPENSION 30 ML UDCUP PO PRN (06:45)
[2023-08-27] MEDS ORDERED: ONDANSETRON HCL 4 MG TABLET PO PRN (06:45)
[2023-08-27] MEDS ORDERED: LOPERAMIDE HCL 2 MG CAPSULE PO PRN (06:45)
[2023-08-27] MEDS ORDERED: ACETAMINOPHEN 325 MG TABLET PO PRN (06:45)
[2023-08-27] MEDS ORDERED: ALBUTEROL SULFATE HFA 90 MCG/PUFF 8 GM INHALER IH PRN (06:45)
[2023-08-27] MEDS ORDERED: MAG HYDROX/ALUMINUM HYD/SIMETH ES 30 ML SUSPENSION UDCUP PO PRN (06:45)
[2023-08-27] MEDS ORDERED: IBUPROFEN 400 MG TABLET PO PRN (06:45)
[2023-08-27] MEDS ORDERED: GuaiFENesin/D-METHORPHAN [SUGAR-FREE] 200-20MG/10 ML SYRUP UDCUP PO PRN (06:45)
[2023-08-27] MEDS ORDERED: PETROLATUM,WHITE 28 GM JELLY TP PRN (06:45)
[2023-08-27] MEDS ORDERED: NICOTINE 14 MG/24 HOUR PATCH TD PRN (06:45)
[2023-08-27 08:15] VITALS: RESP 16
[2023-08-27 20:25] VITALS: BP 116/64; PULSE 68; RESP 18; TEMP 98.9
[2023-08-27] MEDS: VALPROIC ACID 250 MG CAPSULE PO SCH (20:31)
[2023-08-27] MEDS: OLANZapine 5 MG TABLET PO SCH (21:06)
[2023-08-27 22:51] VITALS: BP 116/64; PULSE 68; RESP 18; TEMP 98.9
[2023-08-28 08:10] VITALS: BP 122/69; PULSE 78; RESP 16; TEMP 97.6; O2SAT 98
[2023-08-28 09:08] LABS: HEMOGLOBIN A1C 5.5 % (3.8-5.6)
[2023-08-28 09:13] LABS: CHOL/HDL RATIO 2.6 (3.9-5.7)
[2023-08-28 09:14] LABS: THYROID STIMULATING HORMONE 0.98 uIU/mL (0.36-3.74)
[2023-08-29 08:07] VITALS: BP 118/76; PULSE 87; RESP 18; TEMP 98; O2SAT 100
[2023-08-29] MEDS ORDERED: VALP250C48 PO (10:53)
[2023-08-29] MEDS ORDERED: OLAN5TAB52 PO (10:53)
[2023-08-29] MEDS ORDERED: HALOPERIDOL LACTATE 5 MG/ML VIAL IM ONE (14:15)
[2023-08-29] MEDS ORDERED: DiphenhydrAMINE HCL 50 MG/ML VIAL IM ONE (14:15)
[2023-08-29] MEDS ORDERED: LORazepam 2 MG/ML VIAL IM ONE (14:15)
== END 2023-08-29 15:53 | disposition home or self-care (01) | DRG 750 ==
LOC: EMS 11:27 → B3A 15:13
PROVIDERS: ADMIT Psychiatry & Neurology Child & Adolescent Psychiatry; ATTEND Psychiatry & Neurology Child & Adolescent Psychiatry
PROC: GZHZZZZ Group Psychotherapy (ICD-10-PCS; principal; 2023-08-27)
PROC: GZ51ZZZ Individual Psychotherapy, Behavioral (ICD-10-PCS; 2023-08-27)
PROC: GZ58ZZZ Individual Psychotherapy, Cognitive-Behavioral (ICD-10-PCS; 2023-08-27)
DX: F20.9 Schizophrenia, unspecified (principal); D64.9 Anemia, unspecified; F15.90 Other stimulant use, unspecified, uncomplicated; F32.A Depression, unspecified; F41.9 Anxiety disorder, unspecified; Z20.822 Contact with and (suspected) exposure to COVID-19; F12.90 Cannabis use, unspecified, uncomplicated; Z87.891 Personal history of nicotine dependence
CPT/HCPCS: 80053; 80061; 83036; 84443; 84703; 85025; G0480; J1200; J1630; J2060